=== PATIENT | female | born 1950 | race Caucasian/White ===

== ENCOUNTER 2018-08-31 08:47 | Emergency (ER) | payer MEDICARE ==
--- NOTE | 2018-08-31 09:22 | ED ---
Head Injury - HPI Summary HPI Summary: This patient is a 68 year old F presenting to [facility] accompanied by two other gentleman after she fell and hit the back of her head this morning. The patient was on a foot stool about 1 foot off the ground cleaning lights when she fell backward, landing on her right hand, sacrum, and occipital area of her head. The patient rates the pain 4/10 in severity. Patient reports intermittent nausea that is worse when she stands and sacrum/right wrist pain. Patient denies dizziness, LOC, visual changes, ABD pain, LE pain, unsteady gait, vomiting, speech changes, and headache. She is not taking any blood thinners. She did take 400mg of ibuprofen. The patient has a scheduled carpal tunnel surgery with Dr. Iverson in the near future. - History Of Current Complaint Chief Complaint: EDGeneral Stated Complaint: FELL AND HIT HEAD, INJURED HAND Hx Obtained From: Patient Mechanism Of Injury: Fall From Height Of: - 1 foot Onset/Duration: Started Hours Ago, Still Present Onset of Pain: Immediate Severity Currently: Moderate Severity Initially: Moderate Pain Intensity: 4 Pain Scale Used: 0-10 Numeric Location of Head Injury: Occipital Location: Diffuse Associated Signs And Symptoms: Negative - dizziness, LOC, visual changes, ABD pain, LE pain, unsteady gait, vomiting, speech changes, and headache., Nausea - Allergies/Home Medications Allergies/Adverse Reactions: Allergies Allergy/AdvReac Type Severity Reaction Status Date / Time citalopram [From Celexa] Allergy Altered Verified 08/31/18 09:10 Mental Status sulfamethoxazole Allergy Rash Verified 08/31/18 09:10 [From Bactrim] trimethoprim [From Bactrim] Allergy Rash Verified 08/31/18 09:10 VICODIN Allergy Intermediate Nausea And Uncoded 08/31/18 09:10 Vomiting Home Medications: Home Medications Alendronate Sodium 70 mg PO WEEKLY 08/31/18 [History Confirmed 08/31/18] Pseudoephedrine TAB* [Sudafed TAB*] 30 mg PO Q6H PRN 08/31/18 [History Confirmed 08/31/18] PMH/Surg Hx/FS Hx/Imm Hx Endocrine/Hematology History: Reports: Hx Thyroid Disease - ON MEDS Denies: Hx Anticoagulant Therapy Respiratory History: Reports: 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, Hx Sleep Apnea GI History: Reports: Hx Gastroesophageal Reflux Disease - ON MEDS CONTROLLED WITH MEDS Musculoskeletal History: Reports: Hx Arthritis - BILAT KNEES, Hx Osteoporosis Sensory History: Reports: Hx Cataracts - LEFT EYE, LEFT RETINAL SURGERY 08/2015 , Hx Contacts or Glasses - GLASSES Denies: Hx Hearing Aid Opthamlomology History: Reports: Hx Cataracts - LEFT EYE, LEFT RETINAL SURGERY 08/2015, Hx Contacts or Glasses - GLASSES Neurological History: Reports: Hx Migraine - NONE SINCE MENOPAUSE - Cancer History Hx Chemotherapy: No Hx Radiation Therapy: No - Surgical History Surgery Procedure, Year, and Place: RIGHT TOTAL KNEE 2011 [facility] [place]. RETINAL LEFT VITRECTOMY 08/22. RIGHT KNEE SCOPING 02/17 AND LEFT KNEE SCOPING [facility]. LAPAROSCOPIC LEFT INGUNIAL HERNIA REPAIR 06/09[facility]. TUBAL LIGATION 08/1978 Hx Anesthesia Reactions: No Infectious Disease History: No Infectious Disease History: Denies: Traveled Outside the [place] in Last 30 Days - Family History Known Family History: Positive: Hypertension Negative: Seizure Disorder - Social History Lives: With Family Alcohol Use: Rare Alcohol Amount: 2-3 X YEAR Substance Use Type: Reports: None Smoking Status (MU): Never Smoked Tobacco Review of Systems Negative: Blurred Vision Positive: Nausea. Negative: Abdominal Pain, Vomiting Musculoskeletal: Negative - LE pain Positive: Other - head injury, right wirst pain, and sacrum pain Neurological: Negative - dizziness, unsteady gait, speech changes, Negative: Headache, Numbness All Other Systems Reviewed And Are Negative: Yes Physical Exam - Summary Physical Exam Summary: General: well-appearing, no pain distress Skin: There is a bruise at the base of the right fifth metacarpal that is TTP and hurts when she moves the right fifth finger. Normal capillary refill and normal sensation, Head: normal Eyes: EOMI, GABE ENT: normal Neck: supple, nontender Respiratory: CTA, breath sounds present Cardiovascular: RRR Abdomen: soft, nontender Bowel: present Musculoskeletal: strength/ROM intact wrist is not TTP. She is TTP at the sacral and coccyx region Neurological: sensory/motor intact, A&O x3 Psychological: affect/mood appropriate Triage Information Reviewed: Yes Vital Signs On Initial Exam: Initial Vitals Temp Pulse Resp BP Pulse Ox 97.9 F 75 16 130/86 96 08/31/18 08:56 08/31/18 08:56 12/24/18 08:56 08/31/18 08:56 08/31/18 08:56 Vital Signs Reviewed: Yes Procedures - Splinting Right 5th Digit Location: right hand and wrist Hand-Made Type: orthoglass Splint: ulnar gutter splint Pre-Proc Neuro Vasc Exam: normal Post-Proc Neuro Vasc Exam: unchanged from pre-exam Diagnostics - Vital Signs Vital Signs Temp Pulse Resp BP Pulse Ox 08/31/18 09:15 69 94 08/31/18 09:05 72 137/85 95 08/31/18 08:56 97.9 F 75 16 130/86 96 - Laboratory Lab Statement: Any lab studies that have been ordered have been reviewed, and results considered in the medical decision making process. - Radiology pelvis xray Radiology Interpretation Completed By: Radiologist Summary of Radiographic Findings: 1. OSTEOPENIA. 2. OSTEOARTHRITIS. 3. NO ACUTE OSSEOUS INJURY. IF SYMPTOMS PERSIST, RECOMMEND REPEAT IMAGING ED physician has reviewed this radiology report. sacrum and coccyx xray Radiology Interpretation Completed By: Radiologist Summary of Radiographic Findings: NO ACUTE OSSEOUS INJURY OF THE SACRUM AND COCCYX. PLAIN FILMS ARE RELATIVELY INSENSITIVE. TO NONDISPLACED FRACTURES OF THE SACRUM AND COCCYX. IF THERE IS PERSISTENT CLINICAL. CONCERN FOR SACROCOCCYGEAL OSSEOUS PATHOLOGY, BONE SCANNING MAY BE MORE SENSITIVE. ED physician has reviewed this radiology report. wrsit xray Radiology Interpretation Completed By: Radiologist Summary of Radiographic Findings: AGAIN NOTED IS A COMMINUTED FRACTURE OF THE BASE OF THE FIFTH METACARPAL. ED physician has reviewed this radiology report. hand xray Radiology Interpretation Completed By: Radiologist Summary of Radiographic Findings: COMMINUTED FRACTURE OF THE BASE OF THE FIFTH METACARPAL. OSTEOPENIA. ED physician has reviewed this radiology report. CT Cspine Radiology Interpretation Completed By: Radiologist Summary of Radiographic Findings: No fracture of the cervical spine is noted. Degenerative changes of the distal. axial joint is noted. ED physician has reviewed this radiology report. - CT CT Brain CT Interpretation Completed By: Radiologist Summary of CT Findings: no acute intracranial pathology. ED physician has reviewed this radiology report. Head Injury Course/Dx Course Of Treatment: I discussed the CT and x-ray reports with the patient. I splinted her metacarpal fracture with a gutter splint. Neurovascularly intact after placement of the splint. Patient will follow up with orthopedics she should get reevaluated if anything gets worse or has any questions or concerns. - Diagnoses Provider Diagnoses: Fracture of fifth metacarpal bone of right hand, Head injury, Contusion of coccyx Discharge - Sign-Out/Discharge Documenting (check all that apply): Patient Departure - Discharge Plan Condition: Stable Disposition: HOME Patient Education Materials: Hand Fracture (ED), Head Injury (ED), Coccyx Injury (ED) Referrals: Robel Gore MD [Primary Care Provider] - Chris Mitchell MD [Medical Doctor] - Additional Instructions: FOLLOW UP WITH ORTHOPEDICS. FOLLOW UP WITH YOUR PRIMARY DOCTOR IF NOT COMPLETELY IMPROVED. GET RECHECKED FOR ANY WORSENING OF YOUR CONDITION OR QUESTIONS OR CONCERNS. - Billing Disposition and Condition Condition: STABLE Disposition: Home - Attestation Statements Document Initiated by Clifton: Yes Documenting Scribe: Moises Garcia Provider For Whom Clifton is Documenting (Include Credential): Easton Casarez MD Scribe Attestation: Moises Juarez scribed for Easton Casarez MD on 08/31/18 at 1122. Scribe Documentation Reviewed: Yes Provider Attestation: The documentation as recorded by the Moises xavier accurately reflects the service I personally performed and the decisions made by me, Easton Casarez MD Status of Scribe Document: Viewed
--- OUTSIDE RECORDS SUMMARY | 2018-08-31 09:29 | XMS REPORT | Continuity of Care Document ---
:1950 External Reference #:[id number] Author Name Robel Gore MD Address [address] [place] [address] Care Team Providers Name Role Phone Robel Gore MD Primary Care Physician Unavailable Payers Type Date Identification Numbers Payment Provider Subscriber Expires: 2017 Policy Number: [id number] [employer] Yamilet Tenorio PayID: [id number] [employer] [address] [address] [place] [address] Policy Number: [id number] Medicare - Bswny Umd Yamilet Tenorio PayID: [id number] [address] [place] [address] Policy Number: [id number] Aar Yamilet Tenorio PayID: [id number] [address] [place] [address] Advance Directives Description No Information Available Problems Description No Information Family History Date Family Member(s) Problem(s) Comments General Aortic Aneurysm Father, brother General Hypertension Father, mother, brothers General Cancer, Prostate x2 brothers General Alzheimer's Disease General Glaucoma General Heart Disease General Cancer, Breast Maunt Social History Type Date Description Comments Sex Unknown Marital Status Lives With Male Partner Pj Tenorio Occupation Retired Mostly retired; 1/wk wound care Tobacco Use Start: Unknown Never Smoked Cigarettes ETOH Use Occasionally consumes alcohol Exercise Type/Frequency Exercises regularly Aqua aerobics 2-4 times per week Allergies, Adverse Reactions, Alerts Date Description Reaction Status Severity Comments 08/07/2017 Citalopram Active depression (idiosyncratic) 08/07/2017 Hydrocodone Nausea and Vomiting Active 08/07/2017 Tramadol Active 08/07/2017 Tetanus Toxoids Active Medications Medication Date Status Form Strength Qnty SIG Indications Ordering Provider Alendronate 03/31 Active Tablets 70mg 12tab take 1 M81.0 Robel Sodium /2018 s tablet by [place] mouth in the , MD morning once weekly with water 1/2 hour before breakfast and stay upright for that time Atenolol Active Tablets 25mg 1 by mouth Unknown / every day Multivitamin Active Tablets 50+ Unknown Women 50+ /0000 Calcium 600 + D Active Tablets 600-200mg 1 by mouth -Unit every day Glucosamine Active Tablets Unknown Chondroitin Triple Strength Turmeric Active Capsules 500mg Cpap Active 11mm with all tubing, mask for obstructive sleep apnea Docusate Sodium Active Capsules 100mg 1 by mouth Unknown twice daily Flonase Allergy Active Suspension 50mcg/Act 2 sprays in Unknown each nostril once daily Sudafed 12 Hour Active Tablets ER 120mg 1 tab by 12HR mouth twice a day as needed Zyrtec Allergy Active Capsules 10mg 1 by mouth every day as needed Levothyroxine Active Tablets 125mcg 90tab Take One Robel Sodium s Tablet By [place] Mouth Every , MD Day Simvastatin Active Tablets 40mg 90tab Take One Robel /0000 s Tablet By [place] Mouth Every , MD Day Omeprazole Active Capsules DR 40mg 90cap Take One Robel / s Capsule By [place] Mouth Every , MD Day Alprazolam ER Active Tablets ER 0.5mg one by mouth 24HR three times a day as needed anxiety mdd 6 Immunizations CPT Code Status Date Vaccine Lot # [id number] Given 08/10/2018 Pneumovax 23 (PPSV23) 65+ years or high risk 2 to [id number] 65 year old [id number] Given 06/08/2018 Influenza Virus Vaccine, Quadrivalent, 3 Yr > Quad, Preserv Free [id number] Given 08/07/2017 Prevnar-13 Pneumococcal Conjugate Vaccine [id number] Given 06/06/2017 Influenza Vaccine High Dose PF Vital Signs Date Vital Result Comment 08/10/2018 8:11am Weight 238.00 lb Weight 107.957 kg BP Systolic 108 mmHg BP Diastolic 70 mmHg Heart Rate 74 /min Body Temperature 97.3 F Respiratory Rate 16 /min Height 66.5 inches 5'6.50" BMI (Body Mass Index) 37.8 kg/m2 O2 % BldC Oximetry 97 % 03/31/2018 2:31pm Weight 238.00 lb Weight 107.957 kg BP Systolic 102 mmHg BP Diastolic 64 mmHg Heart Rate 70 /min Body Temperature 98.2 F Respiratory Rate 15 /min O2 % BldC Oximetry 96 % 08/07/2017 8:16am Weight 230.00 lb Weight 104.328 kg BP Systolic 104 mmHg BP Diastolic 66 mmHg Heart Rate 63 /min Body Temperature 96.3 F Respiratory Rate 16 /min Height 67 inches 5'7" BMI (Body Mass Index) 36.0 kg/m2 O2 % BldC Oximetry 97 % Results Test Date Facility Test Result H/L Range Note Laboratory test 08/10/2018 [facility] TSH 6.40 mcIU/ mL High 0.34-5.60 1 finding [phone] (Thyroid Stim Horm) Free T4 (Free Thyroxine) 1.06 ng/dL N 0.61-1.12 2 Statin 08/10/2018 [facility] Ast 15 U/L N 13-39 [phone] Alt 20 U/L N 7-52 Lipid Profile 08/10/2018 [facility] Triglycerides 230 mg/dL 3 (Trig/Chol/HDL) [phone] Cholesterol 212 mg/dL 4 HDL Cholesterol 42.7 mg/dL 5 LDL Cholesterol 123 mg/dL 6 CBC Auto Diff 08/10/2018 [facility] White Blood 4.4 10^3/uL N 3.5-10.8 [phone] Count Red Blood Count 4.63 10^6/uL N 4.00-5.40 Hemoglobin 13.6 g/dL N 12.0-16.0 Hematocrit 41 % N 35-47 Mean Corpuscular Volume 88 fL N 80-97 Mean Corpuscular Hemoglobin 29 pg N 27-31 Mean Corpuscular HGB Conc 33 g/dL N 31-36 Red Cell Distribution Width 14 % N 10.5-15 Platelet Count 282 10^3/uL N 150-450 Mean Platelet Volume 7.8 fL N 7.4-10.4 Abs Neutrophils 2.3 10^3/uL N 1.5-7.7 Abs Lymphocytes 1.6 10^3/uL N 1.0-4.8 Abs Monocytes 0.4 10^3/uL N 0-0.8 Abs Eosinophils 0.1 10^3/uL N 0-0.6 Abs Basophils 0 10^3/uL N 0-0.2 Abs Nucleated RBC 0 10^3/uL Granulocyte % 51.7 % Lymphocyte % 36.1 % Monocyte % 8.0 % Eosinophil % 3.3 % Basophil % 0.9 % Nucleated Red Blood Cells % 0.1 Comp Metabolic Panel 08/10/2018 [facility] Sodium 139 mmol/L N 135-145 [phone] Potassium 4.5 mmol/L N 3.5-5.0 Chloride 104 mmol/L N 101-111 Co2 Carbon Dioxide 29 mmol/L N 22-32 Anion Gap 6 mmol/L N 2-11 Glucose 117 mg/dL High 70-100 Blood Urea Nitrogen 17 mg/dL N 6-24 Creatinine 0.63 mg/dL N 0.51-0.95 BUN/Creatinine Ratio 27.0 High 8-20 Calcium 9.1 mg/dL N 8.6-10.3 Total Protein 6.9 g/dL N 6.4-8.9 Albumin 4.6 g/dL N 3.2-5.2 Globulin 2.3 g/dL N 2-4 Albumin/Globulin Ratio 2.0 N 1-3 Total Bilirubin 0.50 mg/dL N 0.2-1.0 Alkaline Phosphatase 60 U/L N 34-104 Egfr Non- 94.3 >60 Egfr 114.1 >60 7 Laboratory test 08/07/2017 [facility] TSH (Thyroid 6.32 High 0.34-5.60 finding [phone] Stim Horm) mcIU/mL Free T4 (Free Thyroxine) 0.91 ng/dL N 0.61-1.12 Hepatitis C Antibody Nonreactive Nonreactive Statin 08/07/2017 [facility] Ast (Sgot) 15 U/L N 13 -39 [phone] Alt 15 U/L N 7-52 Lipid Profile 08/07/2017 [facility] Triglycerides 228 mg/dL 8 (Trig/Chol/HDL) [phone] Cholesterol 209 mg/dL 9 HDL Cholesterol 40.6 mg/dL 10 LDL Cholesterol 123 mg/dL 11 Laboratory test 08/07/2017 [facility] Hemoglobin A1c 6.1 % High 4.0-5.6 12 finding [phone] (Glyco HGB) CBC Auto Diff 08/07/2017 [facility] White Blood 4.3 N 3.5-10.8 [phone] Count 10^3/uL Red Blood Count 4.59 10^6/uL N 4.0-5.4 Hemoglobin 13.6 g/dL N 12.0-16.0 Hematocrit 41 % N 35-47 Mean Corpuscular Volume 89 fL N 80-97 Mean Corpuscular Hemoglobin 30 pg N 27-31 Mean Corpuscular HGB Conc 33 g/dL N 31-36 Red Cell Distribution Width 14 % N 10.5-15 Platelet Count 298 10^3/uL N 150-450 Mean Platelet Volume 8 um3 N 7.4-10.4 Abs Neutrophils 2.3 10^3/uL N 1.5-7.7 Abs Lymphocytes 1.5 10^3/uL N 1.0-4.8 Abs Monocytes 0.3 10^3/uL N 0-0.8 Abs Eosinophils 0.1 10^3/uL N 0-0.6 Abs Basophils 0 10^3/uL N 0-0.2 Abs Nucleated RBC 0.02 10^3/uL Granulocyte % 54.3 % N 38-83 Lymphocyte % 34.7 % N 25-47 Monocyte % 8.1 % N 1-9 Eosinophil % 1.9 % N 0-6 Basophil % 1.0 % N 0-2 Nucleated Red Blood Cells % 0.4 Basic Metabolic 08/07/2017 [facility] Sodium 139 mmol /L N 133-145 Panel [phone] Potassium 4.3 mmol/L N 3.5-5.0 Chloride 103 mmol/L N 101-111 Co2 Carbon Dioxide 30 mmol/L N 22-32 Anion Gap 6 mmol/L N 2-11 Glucose 97 mg/dL N 70-100 Blood Urea Nitrogen 23 mg/dL N 6-24 Creatinine 0.65 mg/dL N 0.51-0.95 BUN/Creatinine Ratio 35.4 High 8-20 Calcium 9.7 mg/dL N 8.6-10.3 Egfr Non- 91.2 >60 Egfr 117.3 >60 13 1 [id number] 2 [id number] 3 Desirable: <150 Borderline High: 150-199 High: 200-499 Very High: >500 4 Desirable: <200 Borderline High: 200-239 High: >239 5 Low: <40 Desirable: 40-60 High: >60 6 Desirable: <100 Near Optimal: 100-129 Borderline High: 130-159 High: 160-189 Very High: >189 7 Because ethnic data is not always readily available, this report includes an eGFR for both -Americans and non- Americans. The National Kidney Disease Education Program (NKDEP) does not endorse the use of the MDRD equation for patients that are not between the ages of 18 and 70, are , have extremes of body size, muscle mass, or nutritional status, or are non- or non-. According to the National Kidney Foundation, irrespective of diagnosis, the stage of the disease is based on the level of kidney function: Stage Description GFR(mL/min/1.73 m(2)) 1 Kidney damage with normal or decreased GFR 90 2 Kidney damage with mild decrease in GFR 60-89 3 Moderate decrease in GFR 30-59 4 Severe decrease in GFR 15-29 5 Kidney failure <15 (or dialysis) 8 Desirable: <150 Borderline High: 150-199 High: 200-499 Very High: >500 9 Desirable: <200 Borderline High: 200-239 High: >239 10 Low: <40 Desirable: 40-60 High: >60 11 Desirable: <100 Near Optimal: 100-129 Borderline High: 130-159 High: 160-189 Very High: >189 12 Therapeutic target for the treatment of diabetes mellitus patients is <7% HBA1C, and in selective patients <6.0%. Please refer to [employer] diabetic care guidelines for further information. 13 Because ethnic data is not always readily available, this report includes an eGFR for both -Americans and non- Americans. The National Kidney Disease Education Program (NKDEP) does not endorse the use of the MDRD equation for patients that are not between the ages of 18 and 70, are , have extremes of body size, muscle mass, or nutritional status, or are non- or non-. According to the National Kidney Foundation, irrespective of diagnosis, the stage of the disease is based on the level of kidney function: Stage Description GFR(mL/min/1.73 m(2)) 1 Kidney damage with normal or decreased GFR 90 2 Kidney damage with mild decrease in GFR 60-89 3 Moderate decrease in GFR 30-59 4 Severe decrease in GFR 15-29 5 Kidney failure <15 (or dialysis) Procedures Date Code Description Status 12/24/2017 [id number] Colonoscopy Completed Encounters Type Date Location Provider Dx Diagnosis Office Visit 03/31/2018 Main Office Robel Gore M81.0 Age-related 2:15p osteoporosis w/o current pathological fracture Office Visit 08/07/2017 Main Office Robel Gore Z00.8 Encounter for other 8:00a general examination E03.9 Hypothyroidism, unspecified Z11.59 Encounter for screening for other viral diseases E78.5 Hyperlipidemia, unspecified E66.8 Other obesity M81.8 Other osteoporosis without current pathological fracture I10 Essential (primary) hypertension Z23 Encounter for immunization Plan of Treatment 08/10/2018 - Robel Gore MDZ00.8 Encounter for other general [id number] Age-related osteoporosis without current pathological fractuComments:No issues or side effects on weekly alendronate. Not due for DEXA recheck yet.E03.9 Hypothyroidism, unspecifiedComments:Due for testing. Idiopathic.E78.5 Hyperlipidemia, unspecifiedComments:Has been stable on a statin. Due for testing.E66.8 Other obesityComments:Concerned about her weight. We will continue to work on this.Recommendations:Of people who lose weight successfully and keep it off: 98% report that they modified their food intake in some way to lose weight. 94% increased their physical activity, with the most frequently reported form of activity being walking. 78% eat breakfast every day. 75% weigh themselves at least once aweek. 62% watch less than 10 hours of TV per week. 90% exercise, on average, about 1 hour per day.
--- OUTSIDE RECORDS SUMMARY | 2018-08-31 09:29 | XMS REPORT | Continuity of Care Document ---
:1950 External Reference #:[id number] Author Name Carlos Jena Care Team Providers Name Role Phone Robel Gore MD Primary Care Physician Unavailable Payers Type Date Identification Numbers Payment Provider Subscriber Policy Number: [id number] Medicare Yamilet Tenorio PayID: [id number] [address] [place] [address] Policy Number: [id number] [facility] Yamilet Tenorio PayID: [id number] [address] [place] [address] Advance Directives Description No Information Available Problems Date Description Provider Status Onset: 04/06/2015 Dyssomnia Anna Estevez MD Active Onset: 04/06/2015 Hypoxemia Anna Estevez MD Active Onset: 04/06/2015 Pulmonary embolism Anna Estevez MD Active Onset: 04/06/2015 Obesity Anna Estevez MD Active Onset: 06/06/2015 Obstructive sleep apnea syndrome Anna Estevez MD Active Family History Date Family Member(s) Problem(s) Comments General Heart Trouble, Diabetes, Cancer General Hypertension General Stroke Father Triple A ; in his 80's Mother Hypertension Mother Alzheimer's Disease Mother in her 80's Siblings 2 brothers w/prostate cancer; 1 brother w/aneurysms Siblings 3 Social History Type Date Description Comments Sex Unknown Marital Status Lives With Spouse Occupation Retired Tobacco Use Start: Unknown Never Smoked Cigarettes Smoking Status Reviewed: 08/11/18 Never Smoked Cigarettes ETOH Use Rarely consumes alcohol Tobacco Use Start: Unknown Patient has never smoked Recreational Drug Use Never Used Drugs Exercise Type/Frequency Exercises regularly Exercise Type/Frequency Does aerobics 2 times a Water aerobics 1-2x week per week Exercise Type/Frequency Donna Water Donna. 1x per week Allergies, Adverse Reactions, Alerts Date Description Reaction Status Severity Comments 08/26/2013 Codeine Active 08/26/2013 Demerol Active 08/26/2013 Lortab Active 11/01/2014 Celexa Active Severe 11/17/2017 Tape Active 12/30/2017 Tramadol Active Medications Medication Date Status Form Strength Qnty SIG Indications Ordering Provider Atenolol 12/08/ Active Tablets 25mg 90tab take one Qutaybeh 2014 s tablet by S. mouth Maghaydah every day , M.DAlex Amoxicillin 09/16/ Active Capsules 500mg 16cap 4 tablets Dirk 2012 s 1 hour Lauren, before M.DAlex dental work Levothyroxine / Active Tablets 125mcg 1 by Unknown Sodium 0000 mouth every day Omeprazole / Active Capsules DR 40mg 1 by Unknown 0000 mouth once a day Simvastatin / Active Tablets 40mg 1 by Unknown 0000 mouth every night at bedtime Multivital / Active Tablets daily Unknown [place] 0000 Calcium + D3 / Active Tablets 600-200mg- 1 by Unknown 0000 Unit mouth every day Glucosamine / Active Tablets 2 by Unknown Chondroitin 0000 mouth Complex once a Advanced day Flonase Allergy / Active Suspension 50mcg/Act 1 spray Unknown Relief 0000 each nostril daily as needed Tumeric / Active 600mg 1 cap po Unknown 0000 daily Sudafed / Active Tablets 30mg as needed Unknown 0000 Zyrtec Allergy / Active Tablets 10mg as needed Unknown 0000 Docusate Sodium / Active Capsules 100mg 1 po bid Unknown 0000 prn Alprazolam / Active Tablets 0.25mg Take One Unknown 0000 Tablet By Mouth Three Times A Day as Needed Maximum Daily Dos Ibuprofen 200 / Active Tablets 200mg 400-600 Unknown 0000 mg 3 times daily as needed. Coumadin 02/03/ Hx Tablets 2.5mg 50tab 2 po use Dirk 2011 - as Lauren, 10/28/ M.Lavonne 2014 Percocet 02/03/ Hx Tablets 5-325mg 60tab 1-2 po Dirk 2011 - q4-6h prn Lauren, 10/28/ pain M.D. 2014 Xanax / Hx Tablets 0.25mg 1/2 tab Unknown 0000 - by mouth up to 2015 three times daily as needed for anxiety Medications Administered in Office Medication Date Status Form Strength Qnty SIG Indications Ordering Provider Depomedrol Administered Injection Dirk Lauren, 40MG 018 M.D. Depomedrol Administered Injection Dirk Lauren, 40MG 013 M.D. Depomedrol Administered Injection Dirk Lauren, 80MG 012 M.D. Depomedrol Administered Injection Willett, Lien, 20MG 009 PA Immunizations CPT Code Status Date Vaccine Lot # [id number] Given 07/31/2015 Influenza Virus 3Yrs & Over [id number] Given 04/06/2015 Fluvirin Im 3Yrs And Older Vital Signs Date Vital Result Comment 08/11/2018 8:37am Height 67 inches 5'7" Heart Rate 60 /min BP Systolic 128 mmHg BP Diastolic 78 mmHg Respiratory Rate 17 /min Pain Level 5 07/07/2018 3:26pm Height 67 inches 5'7" Weight 237.00 lb Heart Rate 76 /min BP Systolic 118 mmHg BP Diastolic 70 mmHg Body Temperature 98.1 F Pain Level 0 BMI (Body Mass Index) 37.1 kg/m2 12/30/2017 8:50am Height 69 inches 5'9" Weight 233.00 lb w/shoes Heart Rate 72 /min BP Systolic Sitting 128 mmHg L/A Reg Cuff BP Diastolic Sitting 84 mmHg L/A Reg Cuff BMI (Body Mass Index) 34.4 kg/m2 Ejection Fraction 55-60% echo 12/05/2016 12/29/2017 8:20am Height 69 inches 5'9" Weight 231.00 lb BP Systolic 122 mmHg BP Diastolic 68 mmHg Respiratory Rate 20 /min Pain Level 3 BMI (Body Mass Index) 34.1 kg/m2 11/17/2017 9:08am Height 69 inches 5'9" Weight 231.00 lb BP Systolic 132 mmHg BP Diastolic 74 mmHg Respiratory Rate 18 /min Body Temperature 97.2 F Pain Level 6 BMI (Body Mass Index) 34.1 kg/m2 08/29/2017 8:04am Height 69 inches 5'9" Weight 229.00 lb no shoes Heart Rate 40 /min BP Systolic Sitting 124 mmHg Rue large cuff BP Diastolic Sitting 76 mmHg Rue large cuff Respiratory Rate 22 /min O2 % BldC Oximetry 97 % On Ra BMI (Body Mass Index) 33.8 kg/m2 01/17/2017 9:42am Height 69 inches 5'9" Weight 220.75 lb with shoes Heart Rate 70 /min BP Systolic Sitting 126 mmHg LA reg cuff BP Diastolic Sitting 78 mmHg LA reg cuff BMI (Body Mass Index) 32.6 kg/m2 Ejection Fraction 55% - 60% echo 12/05/16 08/30/2016 8:43am Height 69 inches 5'9" Weight 229.00 lb Heart Rate 68 /min BP Systolic 104 mmHg BP Diastolic 62 mmHg Respiratory Rate 14 /min O2 % BldC Oximetry 97 % BMI (Body Mass Index) 33.8 kg/m2 06/10/2016 11:32am Height 69 inches 5'9" Weight 229.50 lb Heart Rate 60 /min BP Systolic Sitting 108 mmHg left arm, reg cuff BP Diastolic Sitting 66 mmHg left arm, reg cuff Respiratory Rate 16 /min BMI (Body Mass Index) 33.9 kg/m2 Waist to Hip Ratio 60-65% 11/28/15 11/02/2015 9:55am Height 69 inches 5'9" Weight 232.00 lb Heart Rate 68 /min BP Systolic Sitting 110 mmHg La lg cuff BP Diastolic Sitting 80 mmHg La lg cuff Respiratory Rate 16 /min BMI (Body Mass Index) 34.3 kg/m2 Ejection Fraction 60-65% date 11/24/14 ECHO 07/31/2015 9:27am Height 69 inches 5'9" Weight 225.00 lb Heart Rate 76 /min BP Systolic Sitting 130 mmHg BP Diastolic Sitting 68 mmHg Respiratory Rate 18 /min O2 % BldC Oximetry 96 % BMI (Body Mass Index) 33.2 kg/m2 06/06/2015 8:32am Heart Rate 71 /min BP Systolic Sitting 128 mmHg BP Diastolic Sitting 66 mmHg Respiratory Rate 18 /min O2 % BldC Oximetry 96 % 04/26/2015 1:45pm Height 69 inches 5'9" Weight 230.00 lb Heart Rate 81 /min BP Systolic Sitting 112 mmHg BP Diastolic Sitting 63 mmHg Pain Level 4 BMI (Body Mass Index) 34.0 kg/m2 04/06/2015 8:30am Height 69 inches 5'9" Weight 230.38 lb Heart Rate 64 /min BP Systolic Sitting 126 mmHg BP Diastolic Sitting 66 mmHg Respiratory Rate 18 /min Body Temperature 97.2 F O2 % BldC Oximetry 98 % BMI (Body Mass Index) 34.0 kg/m2 03/14/2015 8:59am Height 69 inches 5'9" Weight 231.00 lb with shoes Heart Rate 70 /min BP Systolic Sitting 124 mmHg La reg cuff BP Diastolic Sitting 86 mmHg La reg cuff Respiratory Rate 16 /min BMI (Body Mass Index) 34.1 kg/m2 Ejection Fraction 55% date 11/30/14 Stress ECHO rest 01/10/2015 9:30am Height 69 inches 5'9" Weight 228.25 lb w/ shoes Heart Rate 60 /min BP Systolic Sitting 110 mmHg LA, reg BP Diastolic Sitting 76 mmHg LA, reg BMI (Body Mass Index) 33.7 kg/m2 Ejection Fraction 60-65% 11/23/14 echo 12/08/2014 2:13pm Height 69 inches 5'9" Weight 229.00 lb w/shoes Heart Rate 70 /min BP Systolic Sitting 120 mmHg LA lg cuff BP Diastolic Sitting 70 mmHg LA lg cuff Respiratory Rate 12 /min BMI (Body Mass Index) 33.8 kg/m2 11/01/2014 10:10am Height 69 inches 5'9" Weight 230.00 lb Heart Rate 88 /min BP Systolic 120 mmHg LA reg BP Diastolic 77 mmHg LA reg BMI (Body Mass Index) 34.0 kg/m2 Results Test Date Facility Test Result H/L Range Note Order 12/30/2017 [facility] In-House EKG <pending> Laboratory test 11/01/2014 [facility] Magnesium 2.2 mg/dL N 1.9-2.[address] [place] [address] [phone] Basic Metabolic 11/01/2014 [facility] Sodium 139 mmol/L N 133- 145 Panel [address] [place] [address] [phone] Potassium 4.1 mmol/L N 3.5-5.0 Chloride 104 mmol/L N 101-111 Co2 Carbon Dioxide 30 mmol/L N 22-32 Anion Gap 5 mmol/L N 2-11 Glucose 105 mg/dL High 70-100 Blood Urea Nitrogen 18 mg/dL N 6-24 Creatinine 0.78 mg/dL N 0.51-0.95 BUN/Creatinine Ratio 23.1 High 8-20 Calcium 9.1 mg/dL N 8.6-10.3 Egfr Non- 74.6 N >60 Egfr 95.9 N >60 1 1 Because ethnic data is not always readily [...] (or dialysis) Procedures Date Code Description Status 12/30/2017 63922 EKG Tracing & Interpretation Completed 11/17/2017 38823 Inject/Drain Joint/Bursa Major W/O US Completed 01/17/2017 51366 EKG Tracing & Interpretation Completed 12/09/2016 72085 Holter Monitor Review (24 hr) review & interp only Completed 12/05/2016 89149 ECHO Transthoracic, Real-Time 2D With Doppler And Color Completed Flow 12/05/2016 68665 ECG Monitor/Recording W/Visual Superimposition Scanning Completed 11/18/2016 73494 Holter Monitor Review (24 hr) review & interp only Completed 11/18/2016 26678 ECG Monitor/Recording W/Visual Superimposition Scanning Completed 12/05/2015 09334 Holter Monitor Review (24 hr)dr review & interp only Completed 12/04/2015 43201 ECG Monitor/Recording W/Visual Superimposition Scanning Completed 11/28/2015 51507 ECHO Transthoracic, Real-Time 2D With Doppler And Color Completed Flow 11/02/2015 63881 EKG Tracing & Interpretation Completed 05/09/2015 71045 Polysomnography Sleep Staging 4+ Parameters Completed 11/30/2014 41945 ECHO Stress Test Incl Perf Contiuous ekg Monitoring W/Phys Completed Superv 11/24/2014 96119 ECHO Transthoracic, Real-Time 2D With Doppler And Color Completed Flow 11/23/2014 61789 ECHO Transthoracic, Real-Time 2D With Doppler And Color Completed Flow 11/01/2014 12207 EKG Tracing & Interpretation Completed 10/25/2014 69474 Holter Monitor Review (24 hr)dr review & interp only Completed 07/28/2013 34487 Rad Exam; Wrist, Comp, Min 3 Views Completed 07/28/2013 77686 Inject Tendon Sheath Or Ligament Aponeurosis Eg Plantar Completed Fascia 07/29/2012 92400 Inject/Drain Joint/Bursa Major W/O US Completed 06/03/2012 63129 Rad Shoulder Comp, Min. 2 Views Completed 03/23/2012 16057 Xray Knee 3 Views Completed 03/23/2012 45873 Rad Exam; Knee, Ap&L Completed 02/13/2012 71085 EKG, Interpretation Only Completed 02/11/2012 16422 TKR Total Knee Replacement Completed 02/11/2012 32619 TKR Total Knee Replacement Completed 12/16/2011 93060 Xray Knee 3 Views Completed 12/16/2011 11786 Rad Exam; Knee, Ap&L Completed 07/31/2009 11642 Rad Exam; Fingers Completed 07/31/2009 77617 Inject/Drain Joint/Bursa Intermediate W/O US Completed Encounters Type Date Location Provider Dx Diagnosis Office Visit 08/11/2018 [facility]opedic Chris Mitchell G56.01 Carpal tunnel 8:30a Services Of Rafa PARSONS syndrome, right upper limb Office Visit 07/07/2018 Orthopedic Chris Mitchell G56.01 Carpal tunnel 2:30p Services Of Rafa PARSONS syndrome, right upper limb Office Visit 12/30/2017 [facility] Estella Silva G47.33 Obstructive sleep 9:20a Of [facility] [place] [facility] [place] Martino apnea (adult) (pediatric) I49.3 Ventricular premature depolarization I71.9 Aortic aneurysm of unspecified site, without rupture E78.2 Mixed hyperlipidemia I10 Essential (primary) hypertension R94.31 Abnormal electrocardiogram [ECG] [EKG] Office Visit 12/29/2017 Orthopedic Christopher Aguilar, 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 knee M16.12 Unilateral primary osteoarthritis, left hip M43.16 Spondylolisthesis, lumbar region Office Visit 08/29/2017 [facility] Traci G47.33 Obstructive sleep 8:15a Sleep Services Of FLORA Irving, apnea (adult) [facility] RN, GASOLINE TESTER-BC (pediatric) Office Visit 01/17/2017 [facility] Qutaybeh S. I49.3 Ventricular 10:00a david Martino M.D. depolarization I71.9 Aortic aneurysm of unspecified site, without rupture G47.33 Obstructive sleep apnea (adult) (pediatric) E78.2 Mixed hyperlipidemia Office Visit 08/30/2016 [facility] Traci G47.33 Obstructive sleep 8:45a Sleep Services Of FLORA Irving RN, apnea (adult) [facility] GASOLINE TESTER-BC (pediatric) Office Visit 06/10/2016 [facility] Qutaybeh S. I71.9 Aortic aneurysm 11:40a Bartolome Martino of unspecified site, without rupture G47.33 Obstructive sleep apnea (adult) (pediatric) E78.2 Mixed hyperlipidemia I10 Essential (primary) hypertension Office Visit 11/02/2015 [facility] Quiliana S. G47.33 Obstructive sleep 10:00a Hilaria Martino M.D. apnea (adult) (pediatric) E66.09 Other obesity due to excess calories I71.9 Aortic aneurysm of unspecified site, without rupture I49.3 Ventricular premature depolarization E78.2 Mixed hyperlipidemia Office Visit 07/31/2015 9:30a Pul[facility]ology And Anna G47.33 Obstructive sleep Sleep Services Of MD Zenaida apnea (adult) [facility] (pediatric) E66.09 Other obesity due to excess calories Office Visit 06/06/2015 8:30a Pul[facility]ology And Anna G47.33 Obstructive sleep Sleep Services Of MD Zenaida apnea (adult) [facility] (pediatric) E66.09 Other obesity due to excess calories I26.99 Other pulmonary embolism without acute cor pulmonale Office Visit 04/26/2015 1:30p Orthopedic Services Of Christopher Aguilar M.D. 724.2 Lumbago C.M.A. 719.45 Pain Joint Pelvic Region & Thigh 715.96 Osteoarthrosis Unspec Genlzd Or Localized Lower Leg Office Visit 04/06/2015 8:45a [facility] Anna Estevez, 799.02 Hypoxemia Services Of Cecy PARSONS 415.19 Pulmonary Embolism And Infarction Other 278.00 Obesity Unspec 780.57 Unspecified Sleep Apnea Office Visit 03/14/2015 9:00a [facility] Leelee Muhammad, 415.19 Pulmonary PA Embolism And Infarction Other 799.02 Hypoxemia 785.0 Tachycardia Unspec 272.4 Hyperlipidemia Other Unspec 441.9 Aneurysm Aortic W/O Rupture Unspec Site Office Visit 01/10/2015 9:30a [facility] Leelee Muhammad, PA 441.9 Aneurysm Aortic W/O Rupture Unspec Site 427.69 Premature Beats Other 272.4 Hyperlipidemia Other Unspec 786.05 Shortness Of Breath Office Visit 12/08/2014 2:20p [facility] Qutaybeh S. 785.1 Palpitations Bartolome Martino 786.05 Shortness Of Breath 441.9 Aneurysm Aortic W/O Rupture Unspec Site 272.4 Hyperlipidemia Other Unspec 427.69 Premature Beats Other V61.8 Family Problem Spec Type Office Visit 11/30/2014 9:30a [facility] Qutaybeh S. 785.1 Palpitations Bartolome Martino 786.50 Pain Chest Unspec 786.05 Shortness Of Breath Office Visit 11/01/2014 10:20a [facility] Qutaybeh S. 785.1 Palpitations Bartolome Martino 786.05 Shortness Of Breath 786.50 Pain Chest Unspec Office Visit 07/28/2013 2:00p Orthopedic Christopher Aguilar 726.4 Enthesopathy Of Services Of [place] Wrist And Carpus C.M.A. 727.04 Tenosynovitis Radial Styloid Office Visit 02/10/2013 8:00a Orthopedic Christopher Aguilar 715.96 Osteoarthrosis Services Of Bartolome Unspec Genlzd Or C.M.A. Localized Lower Leg Office Visit 09/16/2012 8:15a Orthopedic Meggan 715.96 Osteoarthrosis Services Of VERONICA Lira Unspec Genlzd Or C.M.A. Localized Lower Leg 726.10 Bursae & Tendon Disorders Shoulder Region Unspec Office Visit 07/29/2012 1:15p Orthopedic Christopher Aguilar 726.10 Bursae & Tendon Services Of M.D. Disorders Shoulder C.M.A. Region Unspec Office Visit 06/03/2012 11:15a Orthopedic Christopher Aguilar 726.10 Bursae & Tendon Services Of M.D. Disorders Shoulder C.M.A. Region Unspec Office Visit 05/06/2012 8:00a Orthopedic Meggan 715.96 Osteoarthrosis Services Of VERONICA Lira Unspec Genlzd Or C.M.A. Localized Lower Leg 726.10 Bursae & Tendon Disorders Shoulder Region Unspec Office Visit 12/16/2011 2:30p Orthopedic Christopher Aguilar 715.96 Osteoarthrosis Services Of M.D. Unspec Genlzd Or C.M.A. Localized Lower Leg Office Visit 07/31/2009 1:00p Orthopedic Josephine Willett 715.94 Osteoarthrosis Services Of PA Unspec Genlzd Or C.M.A. Localized Hand 719.44 Pain Joint Hand Plan of Treatment Future Appointment(s):09/23/2018 8:00 am - Chris Mitchell MD at Orthopedic Services Of C.[facility].A.09/04/2018 9:00 am - Traci Irving DNP, RN, GASOLINE TESTER-BC at [facility]08/11/2018 - Chris Mitchell MDG56.01 Carpal tunnel syndrome, right upper limbFollow up:Follow up:
[2018-08-31 11:20] VITALS: BP 119/69
== END 2018-08-31 11:35 | disposition home or self-care (01) ==
LOC: ED 08:47
DX: S62.306A Unspecified fracture of fifth metacarpal bone, right hand, initial encounter for closed fracture (principal); S09.90XA Unspecified injury of head, initial encounter; S30.0XXA Contusion of lower back and pelvis, initial encounter; W17.89XA Other fall from one level to another, initial encounter; Y92.9 Unspecified place or not applicable
CPT/HCPCS: 70450; 72125; 72170; 72220; 99283

== ENCOUNTER 2018-12-28 12:18 | Day surgery (SDC) | payer MEDICARE ==
[~2018-12-28 12:18] MED LIST: Buffered Lidocaine 1% SYRIN* 1 ML/SYRINGE INTRADERM ONE; Famotidine IV* 10 MG/ML 2 ML (20 mg) IV ONE; Lactated Ringers 1000 ML Bag* 1,000 ML IV SCH
[2018-12-28] MEDS ORDERED: Buffered Lidocaine 1% SYRIN* 1 ML/SYRINGE INTRADERM ONE (12:29)
[2018-12-28] MEDS ORDERED: Famotidine IV* 10 MG/ML 2 ML (20 mg) ONE (12:30)
[2018-12-28] MEDS ORDERED: DiMENhydriNATE IV* 50 MG/ML VIAL ONE (13:10)
[2018-12-28] MEDS ORDERED: fentaNYL* 50 MCG/ML 2 ML VIAL (100 MCG VIAL) ONE (13:10)
[2018-12-28] MEDS ORDERED: Ondansetron INJ* 2 MG/ML VIAL ONE (13:10)
[2018-12-28] MEDS ORDERED: Dexamethasone IV* 4 MG/ML 1 ML (4 MG) ONE (13:10)
[2018-12-28] MEDS ORDERED: Ketorolac INJ* 30 MG/ML 1 ML VIAL ONE (13:10)
[2018-12-28] MEDS ORDERED: Midazolam* 1 MG/ML 5 ML VIAL (5 MG) ONE (13:10)
[2018-12-28] MEDS ORDERED: Propofol* 10 MG/ML 20 ML BTL ONE (13:10)
[2018-12-28] MEDS ORDERED: Lidocaine 2% PF * 5 ML VIAL ONE (13:10)
[2018-12-28] MEDS ORDERED: Acetaminophen TAB* 325 MG PO PRN (13:54)
[2018-12-28] MEDS ORDERED: DiMENhydriNATE IV* 50 MG/ML VIAL IV PUSH PRN (13:54)
[2018-12-28] MEDS ORDERED: Bupivacaine 0.25% SDV PF* 10 ML VIAL INJ ONE (14:20)
[2018-12-28] MEDS ORDERED: Acetaminophen TAB* 325 MG ONE (15:16)
[2018-12-28 15:23] VITALS: BP 137/89
--- NOTE | 2018-12-29 01:28 | OP ---
DATE OF OPERATION: 12/28/18 - SDS DATE OF : 52 SURGEON: Chris Mitchell MD GUTTER HANGER: SAURABH Hoffmann ANESTHESIOLOGIST: Dr. Yeh. ANESTHESIA: General. PRE-OP DIAGNOSIS: Right carpal tunnel syndrome. POST-OP DIAGNOSIS: Right carpal tunnel syndrome. OPERATIVE PROCEDURE: Right endoscopic carpal tunnel release. INDICATIONS: Yamilet has carpal tunnel syndrome. We talked about risks and benefits. She had wanted to proceed. ESTIMATED BLOOD LOSS: 1 mL. COMPLICATIONS: None. FINDINGS: See above and below. DESCRIPTION OF PROCEDURE: Yamilet was seen in the preoperative holding area. The correct site, side, and procedure were identified. We came back to the operating room where the arm was prepped and draped in the usual fashion and a time-out was performed. The arm was exsanguinated with the Esmarch and the tourniquet was inflated to 250 mmHg. I made a 1 cm transverse incision just ulnar to the palmaris longus tendon about a centimeter proximal to the wrist flexion crease. Dissection was carried down. The distal antebrachial fascia was split bluntly with a tenotomy scissors. A narrow 2-prong skin hook was placed. I then introduced the synovial stripper, followed by the series of dilators and then the MicroAire endoscopic carpal tunnel system. The release was carried out from distal to proximal in the standard fashion. Once I had released everything distally and had confirmed this under direct visualization with the endoscope, I came proximally and released the distal antebrachial fascia with the tenotomy scissors. At this point, everything was looking good. So, we irrigated out the wound. The skin was closed with a 4-0 nylon suture. The wound was dressed with a soft dressing and she was taken to the recovery room in stable condition. [id number]/[facility] #: [id number] [facility] CENTERKayden
== END 2018-12-28 15:25 | disposition home or self-care (01) ==
LOC: OR 12:18
PROVIDERS: ATTEND Orthopaedic Surgery Hand Surgery
DX: G56.01 Carpal tunnel syndrome, right upper limb (principal); G47.33 Obstructive sleep apnea (adult) (pediatric); E03.9 Hypothyroidism, unspecified; Z86.718 Personal history of other venous thrombosis and embolism; Z86.711 Personal history of pulmonary embolism
CPT/HCPCS: A9270-GY; J1100; J1240; J1885; J2250; J2405; J2704; J3010; J3490